=== PATIENT | female | born 1965 | race Caucasian/White ===

== ENCOUNTER 2024-08-04 16:46 | Outpatient (OUT) | payer OTHER, SELFPAY ==
--- NOTE | 2024-08-04 17:01 | US_ITS ---
[address] [address] Patient Name: LAINA WALDEN MRN: [id number] date: 1965 Sex: F Assigned Patient Location: US Current Patient Location: Accession/Order Number: [id number] Exam Date: 08/04/2024 17:07 Report Date: 08/05/2024 07:36 At the request of: DIMA MUIR Procedure: US carotid duplex BI EXAMINATION: US carotid duplex BI HISTORY: VISION CHANGES H53.9 COMPARISON: No relevant comparison available. TECHNIQUE: Duplex Doppler ultrasound analysis of carotid and vertebral arteries. . Bilateral carotid arterial duplex examination was performed using B-mode, color flow and spectral analysis. Carotid stenosis is reported according to validated velocity parameters, similar to NASCET criteria. FINDINGS: RIGHT CAROTID ARTERY Subclavian: 110.82 cm/s / 0 cm/s CCA: Prox: 84 cm/s / 20 cm/s Mid: 97.84 cm/s / 26.66 cm/s Distal: 96.54 cm/s / 24.07 cm/s BULB: 81.01 cm/s / 24.07 cm/s ICA: Prox: 96.74 cm/s / 14.37 cm/s Mid: 83.60 cm/s / 34.42 cm/s Distal: 77.13 cm/s / 27.95 cm/s ECA: 110.78 cm/s / 17.60 cm/s VERTEBRAL: 69.75 cm/s / 21.87 cm/s ICA/CCA ratio: 1.0 LEFT CAROTID ARTERY Subclavian: 198 cm/s / 0 cm/s CCA: Prox: 93.05 cm/s / 20.58 cm/s Mid: 93.05 cm/s / 27.05 cm/s Distal: 93.05 cm/s / 29.64 cm/s BULB: 80.11 cm/s / 23.16 cm/s ICA: Prox: 70.85 cm/s / 28.92 cm/s Mid: 66.53 cm/s / 23.54 cm/s Distal: 79.43 cm/s / 36.44 cm/s ECA: 70.98 cm/s / 10.60 cm/s VERTEBRAL: 40.90 cm/s / 12.02 cm/s ICA/CCA ratio: 0.9 US/US carotid duplex BI IMPRESSION: 1. 0-49% flow stenosis within the right left carotid arteries. 2. No significant atherosclerotic disease or vessel narrowing. Spectral Doppler US Thresholds Stenosis (%) PSV (cm/sec) VICA/VCCA 0-49 <150 <2.5 50-69 150-225 2.5-4.0 >70 >225 >4.0 Electronically authenticated by: JAMIE SAVAGE Date: 08/05/2024 07:36
== END 2024-08-04 16:47 | disposition home or self-care (01) ==
LOC: US 16:49
PROVIDERS: PCP Family Medicine; Visit Provider Family Medicine
DX: H53.9 Unspecified visual disturbance (principal); G45.3 Amaurosis fugax
CPT/HCPCS: 93880

== ENCOUNTER 2024-08-23 15:01 | Outpatient (OUT) | payer OTHER, SELFPAY ==
--- NOTE | 2024-08-23 15:05 | CT_ITS ---
The [address] [address] Patient Name: LAINA WALDEN MRN: [id number] date: 1965 Sex: F Assigned Patient Location: CT Current Patient Location: Accession/Order Number: [id number] Exam Date: 08/23/2024 15:06 Report Date: 08/24/2024 05:34 At the request of: DIMA MUIR Procedure: CT head/brain wo con EXAMINATION: CT head/brain wo con HISTORY: Visual Changes, Amaurosis Fugax COMPARISON: No relevant comparison available. TECHNIQUE: Axial CT images were obtained without IV contrast. Dose reduction techniques were achieved by using automated exposure control and/or adjustment of mA and/or kV according to patient size and/or use of iterative reconstruction technique. FINDINGS: BRAIN: No edema, hemorrhage, mass, acute infarction, or inappropriate atrophy. CSF SPACES: No hydrocephalus, subarachnoid hemorrhage, or mass. Appropriate for age. SKULL: No fracture, mass, or other significant visible lesion. SINUSES: No significant mucosal thickening or fluid on the limited views. ORBITS: No appreciable abnormality on the limited views. OTHER: Negative CT/CT head/brain wo con IMPRESSION: 1. No abnormal or suspicious findings to account for patient's symptoms. Consider MRI for further evaluation. Electronically authenticated by: JAMIE SAVAGE Date: 08/24/2024 05:34
--- OUTSIDE RECORDS SUMMARY | 2024-08-23 15:19 | XMS_ITS | CCD ---
Author Organization [facility] Inform ion Partnership [facility] Care Team Providers Care Craft Worker Name Role Phone DR RICHARD MUIR Attending Unavailable WOOD, DR CH Consulting Unavailable WOOD, DR CH Primary Care Unavailable WOOD, DR CH Admitting Unavailable RICHARD MUIR Primary Care Physician MD Richard Muir Primary Care Provider [phone] DO Kayley Garnett Attending Provider [phone] MD Richard Muir Primary Care Provider [phone] DO Kayley Garnett Attending Provider [phone] Richard Muir Primary Care Unavailable Kayley Garnett Attending Unavailable Kayley Garnett Admitting Unavailable Rihcard Muir MD Primary Care Provider Richard Muir MD Unavailable KAYLEY GARNETT Attending Unavailable RICHARD MUIR Attending Unavailable Medications Current Medications Medication Drug Class(es) Dates Sig (Normalized) Sig (Original) acetaminophen 325 mg / HYDROcodone bitartrate 5 mg oral tablet (2 sources) Opioid Agonist Start: 08-25-2019 take 1 tablet by mouth every six hours Hydrocodone-Aceta minophen Active 1 TAB PO Q6H 20 5 August 25, 2019 ascorbic acid 1000 mg oral tablet (8 sources) Vitamin C Start: 08-25-2019 take 1 tablet by mouth once daily Ascorbic Acid (Vitamin C) (Vitamin C) 1,000 mg Tablet Active 1000 MG PO Daily August 25, 2019 1:00am Start: 02-18-2018 take 100 mg by mouth once daily Vitamin C 100 mg, Oral, Daily, Refills(s) 0, Prophylaxis Start Date: 02/18/18 Status: Ordered Bioflavonoid Pro ducts (Vitamin C) chewable tablet 1 (one) time each day at the same time Active ascorbic acid 226 mg / cuprous oxide 0.8 mg / dl-alpha tocopheryl acetate 200 unt / lutein 5 mg / zinc oxide 34.8 mg oral capsule (2 sources) Vitamin C Start: 08-25-2019 take 0.8 mg by mouth once daily Vit J-J-Zxlbqx-Zinc-Lutein (Preservision Lutein) 226 mg-200 unit -5 mg-0.8 mg Capsule Active 226 MG PO Daily August 25, 2019 1:00am B Complex Vitamins (vitamin B complex) tablet (3 sources) B Complex Vitami ns (vitamin B complex) tablet Orally Active Biotin (8 sources) Start: 08-25-2019 take 300 ug by mouth once daily Biotin Active 300 MCG PO Daily August 25, 2019 1:00am Start: 08-25-2019 take 300 ug by mouth once vinita y Biotin Active 300 MCG PO Daily August 25, 2019 1:00am Start: 02-18-2018 biotin 1,000 m icrogram, Oral, Daily, Refills(s) 0, Prophylaxis Start Date: 02/18/18 Status: Ordered Calcium (3 sources) Phosphate Binder, Calcium Start: 02-18-2018 take 1 tablet by mouth once daily Calcium 600+D 1 tab, Oral, Daily, Refill(s) 0, Prophylaxis Start Date: 02/18/18 Status: Ordered calcium carbonate 1250 mg oral tablet (2 sources) Start: 08-25-2019 take 1 tablet by mouth once daily Calcium Carbonate (Calcium 500) 500 mg calcium (1,250 mg) Tablet Active 500 MG PO Daily August 25, 2019 1:00am Calcium Citrate-Vitamin D 1000-0.01 MG/30ML liquid (3 sources) Calcium Citrate-Vitamin D 1000-0.01 MG/30ML liquid Take by mouth Active cholecalciferol 0.025 mg oral capsule (5 sources) Vitamin D Start: 08-25-2019 take 1 capsule by mouth once daily Cholecalciferol (Vitamin D3) (Vitamin D3) 1,000 unit Capsule Active 1000 MG PO Daily August 25, 2019 1:00am cholecalciferol 50 MCG (2000 UT) tablet 1 (one) time each day at the same time Active chromium picolinate 0.2 mg oral tablet (5 sources) Start: 08-25-2019 take 200 mg by mouth once daily Chromium Picolinate Active 200 MG PO Daily August 25, 2019 1:00am Start: 02-18-2018 chromium picol inate 200 microgram, Oral, Daily, Refills(s) 0, Prophylaxis Start Date: 02/18/18 Status: Ordered chromium, chelated 0.2 mg oral tablet (2 sources) chromium picolin ate 200 mcg tablet tablet Active Co Q-10 (3 sources) Start: 018 take 150 mg by mouth once daily Co Q-10 150 mg, Oral, Daily, Refills(s) 0, Prophylaxis Start Date: 02/18/18 Status: Ordered estradiol 0.5 mg oral tablet (8 sources) Estrogen Start: estradiol (Estrace) 0.5 MG tablet Indications: Postmenopausal atrophic vaginitis TAKE 1 TABLET DAILY 90 tablet 3 11/08/2023 Active Fish Oils (3 sources) Start: take 500 mg by mouth once daily Fish Oil 500 mg, Oral, Daily, Refill(s) 0, Prophylaxis Start Date: 02/18/18 Status: Ordered hydrocortisone 0.025 mg/mg topical ointment (3 sources) Corticosteroid Start: hydrocortisone 2.5 % ointment if needed 11/11/2023 Active ivermectin 10 mg/ml topical cream (3 sources) Antiparasitic, Pediculicide Start: Soolantra 1 % cream 11/11/2023 Active Magnesium (2 sources) Start: magnesium 200 MG tablet 04/04/2024 Active [place]well 5-Lph-Jtw-Fish Oil (Fish Oil) 1,000 mg (120 mg-180 mg) Capsule (2 sources) Start: 019 take 1 capsule by mouth twice daily [place]well 3-Hld-Kjx-Fish Oil (Fish Oil) 1,000 mg (120 mg-180 mg) Capsule Active 1000 MG PO Twice daily August 25, 2019 1:00am polyethylene glycol 3350 with electrolytes Oral Pwdr for Pao 4000 mL (NuLytely) (2 sources) Start: 022 take 1 dose by mouth once polyethylene glycol 3350 with electrolytes Oral Pwdr for Pao 4000 mL (NuLytely) See Instructions, 1 EA, Refill(s) 0, PER PHYSICIAN INSTRUCTIONS. PRIOR TO COLONOSCOPY., [facility]/pharmacy #[id number], 157.5, cm, 12/22/21 8:44:00 EDT, Height/Length Dosing, 67.5, kg, 12/22/21 8:44:00 EDT, Weight Dosing Start Date: 12/22/21 Status: Ordered pyridoxine (3 sources) Start: take 250 mg by mouth once daily pyridoxine 250 mg, Oral, Daily, b-6, Refills(s) 0, Prophylaxis Start Date: 02/18/18 Status: Ordered selenium (3 sources) Start: take 50 ug by mouth once daily selenium 50 mcg, Oral, Daily, Refills(s) 0, Prophylaxis Start Date: 02/18/18 Status: Ordered Selenium (2 sources) Start: take 50 ug by mouth once daily Selenium Active 50 MCG PO Daily August 25, 2019 1:00am selenium 100 MCG tablet (2 sources) selenium 100 MCG tablet Active spironolactone 100 mg oral tablet (3 sources) Aldosterone Antagonist Start: take 100 mg by mouth once daily spironolactone 100 mg, Oral, Daily, Refills(s) 0, diuretic/water pill Start Date: 02/18/18 Status: Ordered tretinoin 0.25 mg/ml topical cream (3 sources) Retinoid Start: tretinoin (Retin-A) 0.025 % cream 11/11/2023 Active ubidecarenone 30 mg oral capsule (5 sources) Start: End: Coenzyme Q10 (Coq-10) 30 mg Capsule Active 30 MG PO Daily August 25, 2019 1:00am Vitamin B Complex (2 sources) Start: take 50 mg by mouth once daily Vitamin B Complex Active 50 MG PO Daily August 25, 2019 1:00am Vitamin B Complex oral capsule (3 sources) Start: take 1 capsule by mouth once daily Vitamin B Complex oral capsule 1 cap(s), Oral, Daily, Refill(s) 0, Prophylaxis Start Date: 02/18/18 Status: Ordered Vitamin D3 (3 sources) Start: 05-18-2 018 Vitamin D3 400 International_Unit, Oral, Daily, Refills(s) 0, Prophylaxis Start Date: 02/18/18 Status: Ordered Zinc (5 sources) Start: 019 take 50 mg by mouth once daily Zinc Active 50 MG PO Daily August 25, 2019 1:00am Start: 02-21-2018 take 140 mg by mouth once vinita y Zinc 140 mg, Oral, Daily, Refills(s) 0, Prophylaxis Start Date: 02/21/18 Status: Ordered zinc gluconate 50 mg oral ta blet (3 sources) zinc gluconate 5 0 MG tablet 1 (one) time each day at the same time. Active Completed/Discontinued Medications Medication Drug Class(es) Dates Sig (Normalized) Sig (Original) aspirin 81 mg delayed release oral tablet (2 sources) Platelet Aggregation Inhibitor, Nonsteroidal Anti-inflammatory Drug Start: 08-25-2019 End: 08-25-2019 Aspirin (Aspirin Low Dose) 81 mg Tablet,Delayed Release (Dr/Ec) Discontinued August 25, 2019 1:00am August 25, 2019 9:03am Problems Active Problems Problem Classification Problem Date Documented Da te Episodic/Chronic Asthma (3 sources) Asthma; Translations: [Unspecified asthma, uncomplicated] Onset: 06-21-2008 04-27-2023 Chronic Blindness and vision defects (7 sources) Eye / vision finding; Translations: [Unspecified visual disturbance] Onset: 05-03-2023 05-03-2023 Episodic Diverticulosis and diverticulitis (5 sources) Diverticula of intestine; Translations: [Diverticulosis of intestine, part unspecified, without perforation or abscess without bleeding] Onset: 02-12-2022 Chronic Headache; including migraine (1 source) Headache; including migraine; Translations: [HEADACHE UNSPECIFIED] Onset: 09-30-2021 Menopausal disorders (3 sources) Atrophic vaginitis; Translations: [Postmenopausal atrophic vaginitis] Onset: 04-27-2023 04-27-2023 Chronic Other nutritional; endocrine; and metabolic disorders (1 source) Overweight in adulthood with body mass index of 25 or more but less than 30; Translations: [Body mass index (BMI) 27.0-27.9, adult] Onset: 12-22-2021 Episodic Other screening for suspected conditions (not mental disorders or infectious disease) (1 source) Encounter for screening mammogram for malignant neoplasm of breast; Translations: [Encounter for screening mammogram for malignant neoplasm of breast] Onset: 03-27-2024 Episodic Other upper respiratory infections (4 sources) Acute pharyngitis, unspecified; Translations: [ACUTE PHARYNGITIS UNSPECIFIED] Onset: 09-23-2021 Episodic Residual codes; unclassified (2 sources) Family history of malignant neoplasm of digestive organ; Translations: [Family history of malignant neoplasm of digestive organs] Onset: 12-22-2021 Episodic Transient cerebral ischemia (6 sources) Amaurosis fugax; Translations: [Amaurosis fugax] Onset: 07-31-2024 07-31-2024 Chronic Past or Other Problems Problem Classification Problem Date Documented Da te Episodic/Chronic Hemorrhoids (5 sources) Hemorrhoids; Translations: [Unspecified hemorrhoids] Onset: 02-12-2022 Episodic Other and unspecified benign neoplasm (7 sources) History of polyp of colon; Translations: [Personal history of colonic polyps] Onset: 12-22-2021 Resolved: 11-29-2023 Episodic Other and unspecified benign neoplasm (5 sources) Polyp of colon; Translations: [Polyp of colon] Onset: 02-12-2022 Episodic Other and unspecified benign neoplasm (3 sources) Benign adenomatous neoplasm; Translations: [Benign neoplasm, unspecified site] Onset: 04-27-2023 Resolved: 11-29-2023 11-29-2023 Episodic Other nervous system disorders (3 sources) Plantar nerve lesion; 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, unspecified lower limb] Onset: 04-27-2023 Resolved: 11-29-2023 11-29-2023 Chronic Residual codes; unclassified (8 sources) Family history of polyp of colon; Translations: [Family history of colonic polyps] Onset: 12-22-2021 Resolved: 11-29-2023 Episodic Residual codes; unclassified (6 sources) Family history of cancer of colon; Translations: [Family history of malignant neoplasm of digestive organs] Onset: 11-29-2023 Resolved: 11-29-2023 12-22-2021 Episodic Results Test Name Value Interpretation Reference Range Facility MM screening mammo BI w/CADo n 03-27-2024 MM screening mammo BI w/CAD [address] [address] Mammography Report Signed Patient: Delores Walden MR#: [id number] : 1965 Acct:[id number] Age/Sex: 58 / F ADM Date: 03/27/24 Loc: [place] Room: Type: [facility] Attending Dr: Kayley Garnett DO Copies to: MD Kayley Stover DO Ordering Provider: Kayley Garnett DO Date of Service: 03/27/24 MM/MM screening mammo BI w/CAD: SCREENING CLINICAL DATA: Screening for malignancy. SCREENING MAMMOGRAM - FULL FIELD DIGITAL WITH TOMOSYNTHESIS AND CAD COMPARISON:Mammogram s dating back to 2020 Tomosynthesis craniocaudal and mediolateral oblique views of both breasts were obtained using low- dose digital technique. This examination was reviewed with the aid of CAD. FINDINGS: The breast parenchyma is heterogeneously dense. There are no dominant masses, typically malignant calcifications or architectural distortion. There has been no significant interval change. MM/MM screening mammo BI w/CAD IMPRESSION: NO MAMMOGRAPHIC EVIDENCE OF MALIGNANCY. ROUTINE FOLLOW-UP IS RECOMMENDED IN ONE YEAR. RESULT CODE: 1 Negative DENSITY CODE: 3 (approximately 51-75% glandular) FOLLOW UP: 1YR The false-negative rate of mammography is approximately 10-percent. Management of a palpable abnormality must be based on clinical grounds. Patient was entered into a reminder system with a target due date for the next mammogram. Impression dictated by: Pranay Singh Jr., D.OДмитрий03/27/2024 10:01 AM Dictation Location: [facility] Transcribed By: [facility] 03/27/24 1001 Dictated By: Pranay Singh Jr, DO 03/27/24 1000 Signed By: 03/27/24 1001 Normal [facility] Ambulatory Visit Summaryon 0 02-12-2022 Ambulatory Visit Summary DELORES WALDEN :1965 Visit Date:02/12/2022 Ambulatory Visit Instructions Your Diagnosis Colon polyps Diverticulosis Hemorrhoids Family history of colon cancer Family history of colonic polyps Your Care Team Attending Physician - Wisam JAMES, Elizabeth A Primary Care Physician - RICHARD MUIR MD This Is Your Medications List Contact prescribing physician if questions or concerns ascorbic acid (Vitamin C) biotin calcium-vitamin D (Calcium 600+D) cholecalciferol (Vitamin D3) chromium picolinate estradiol (Estrace 0.5 mg Tab) multivitamin (Vitamin B Complex oral capsule) omega-3 polyunsaturated fatty acids (Fish Oil) pyridoxine selenium spironolactone ubiquinone (Co Q-10) zinc sulfate (Zinc) Procedures Performed Colonoscopy, Fissurectomy with sphincterotomy, Hysterectomy. Discharge Vitals Temperature (Temporal Artery) 36.2 ?C Heart Rate (Peripheral) 56 Blood Pressure 125/79 Height 157.5 cm Height 157.5 cm Weight 67.1 kg Weight 67.1 kg BMI 27.05 What to do next You Need to Schedule the Following Appointments Follow Up with Elizabeth Joel CNP When: Within 1 year, only if needed Where: Medications What How Much When Instructions Unchanged ascorbic acid (Vitamin C) 100 Milligram By Mouth Every day Contact prescribing physician if questions or concerns Unchanged biotin 1,000 Microgram By Mouth Every day Contact prescribing physician if questions or concerns Unchanged calcium-vitamin D (Calcium 600+D) 1 tab By Mouth Every day Contact prescribing physician if questions or concerns Unchanged cholecalciferol (Vitamin D3) 400 International unit By Mouth Every day Contact prescribing physician if questions or concerns Unchanged chromium picolinate 200 Microgram By Mouth Every day Contact prescribing physician if questions or concerns Unchanged estradiol (Estrace 0.5 mg Tab) 1 Tablets By Mouth Every day Contact prescribing physician if questions or concerns Unchanged multivitamin (Vitamin B Complex oral capsule) 1 Capsules By Mouth Every day Contact prescribing physician if questions or concerns Unchanged omega-3 polyunsaturated fatty acids (Fish Oil) 500 Milligram By Mouth Every day Contact prescribing physician if questions or concerns Unchanged pyridoxine 250 Milligram By Mouth Every day b-6 Contact prescribing physician if questions or concerns Unchanged selenium 50 mcg By Mouth Every day Contact prescribing physician if questions or concerns Unchanged spironolactone 100 Milligram By Mouth Every day Contact prescribing physician if questions or concerns Unchanged ubiquinone (Co Q-10) 150 Milligram By Mouth Every day Contact prescribing physician if questions or concerns Unchanged zinc sulfate (Zinc) 140 Milligram By Mouth Every day Contact prescribing physician if questions or concerns Allergies No Known Medication Allergies Problems Ongoing - Any problem that you are currently receiving treatment for. Colon polyps Diverticulosis Family history of colon cancer Family history of colonic polyps Hemorrhoids History of colon polyps Education Materials Colon Polyps Polyps are tissue growths inside the body. Polyps can grow in many places, including the large intestine (colon). A polyp may be a round bump or a mushroom-shaped growth. You could have one polyp or several. Most colon polyps are noncancerous (benign). However, some colon polyps can become cancerous over time. Finding and removing the polyps early can help prevent this. What are the causes? The exact cause of colon polyps is not known. What increases the risk? You are more likely to develop this condition if you: ? Have a family history of colon cancer or colon polyps. ? Are older than 50 or older than 45 if you are . ? Have inflammatory bowel disease, such as ulcerative colitis or Crohn's disease. ? Have certain hereditary conditions, such as: ? Familial adenomatous polyposis. ? Neff syndrome. ? Turcot syndrome. ? Peutz?Jeghers syndrome. ? Are overweight. ? Smoke cigarettes. ? Do not get enough exercise. ? Drink too much alcohol. ? Eat a diet that is high in fat and red meat and low in fiber. ? Had childhood cancer that was treated with abdominal radiation. What are the signs or symptoms? Most polyps do not cause symptoms. If you have symptoms, they may include: ? Blood coming from your rectum when having a bowel movement. ? Blood in your stool. The stool may look dark red or black. ? Abdominal pain. ? A change in bowel habits, such as constipation or diarrhea. How is this diagnosed? This condition is diagnosed with a colonoscopy. This is a procedure in which a lighted, flexible scope is inserted into the anus and then passed into the colon to examine the area. Polyps are sometimes found when a colonoscopy is done as part of routine cancer s (more content not included)... Normal [facility] Gastroenterology Office/Clin ic Noteon 02-12-2022 Gastroenterology Office/Clinic Note Chief Complaint Review results HPI Staff Patient is here today to review results. History of Present Illness Patient is a 56-year-old female who presents for follow-up from colonoscopy completed 01/27/[address] Domingo. Patient with history of colon polyps. Patient also with family history of colon cancer?patient's father. Patient with family history of colon polyps?patient's father and patient's brother. Colonoscopy 01/27/2022 revealed tubulovillous adenoma removed from cecum, diverticulosis, hemorrhoids - Dr. Domingo recommended for patient to have repeat colonoscopy in 3 years (2024). During today's visit, patient reports she is doing well. Denies having any GI complaints. Review of Systems ROS - Provider Constitutional: no fever, no chills. Skin: no Jaundice. ENMT: Denies dysphagia and heartburn. Respiratory: no shortness of breath. Cardiovascular: no chest pain. Gastrointestinal: no nausea, no vomiting, no diarrhea, no GI bleeding. Physical Exam Vitals & Measurements T: 36.2 ?C(Temporal Artery) HR: 56(Peripheral) BP: 125/79 SpO2: 100% HT: 157.5 cm HT: 157.5 cm WT: 67.1 kg WT: 67.1 kg BMI: 27.05 General: Well developed, well nourished, in no acute distress Head: Normocephalic/atraum atic Lungs: Normal respiratory effort and clear to auscultation Cardio: Regular rate and rhythm, normal S1 and S2, no murmur, no rub Abdomen: Soft, non-distended, non-tender. Normoactive bowel sounds present in all 4 abdominal quadrants, bilaterally. Mental Status: Alert and oriented x3. Normal mood and affect Assessment/Plan 1. Colon polyps (K63.5: Polyp of colon) Family history of colon cancer?patient's father. Patient with family history of colon polyps?patient's father and patient's brother. Colonoscopy 01/27/2022 revealed tubulovillous adenoma removed from cecum, diverticulosis, hemorrhoids- Dr. Domingo recommended for patient to have repeat colonoscopy in 3 years (2024). Educated regarding use of fiber daily for hemorrhoids, diverticulosis and to potentially assist in reducing risk of future colon polyps. 2. Diverticulosis (K57.90: Diverticulosis of intestine, part unspecified, without perforation or abscess without bleeding) Same as above plan of care. See #1. 3. Hemorrhoids (K64.9: Unspecified hemorrhoids) Same as above plan of care. See #1. 4. Family history of colon cancer (Z80.0: Family history of malignant neoplasm of digestive organs) Same as above plan of care. See #1. 5. Family history of colonic polyps (Z83.71: Family history of colonic polyps) Same as above plan of care. See #1. Follow-up With When Contact Information Elizabeth Joel CNP Within 1 year, only if needed Additional Instructions: Patient Education Colon Polyps Problem List/Past Medical History Ongoing Colon polyps Diverticulosis Family history of colon cancer Family history of colonic polyps Hemorrhoids History of colon polyps Historical No qualifying data Procedure/Surgical History Colonoscopy, Fissurectomy with sphincterotomy, Hysterectomy. Medications biotin, 1000 mcg, Oral, Daily Calcium 600+D, 1 tab, Oral, Daily chromium picolinate, 200 mcg, Oral, Daily Co Q-10, 150 mg, Oral, Daily Estrace 0.5 mg Tab, 0.5 mg= 1 tab(s), Oral, Daily Fish Oil, 500 mg, Oral, Daily pyridoxine, 250 mg, Oral, Daily selenium, 50 mcg, Oral, Daily spironolactone, 100 mg, Oral, Daily, Not taking Vitamin B Complex oral capsule, 1 cap(s), Oral, Daily Vitamin C, 100 mg, Oral, Daily Vitamin D3, 400 International_Unit, Oral, Daily Zinc, 140 mg, Oral, Daily Allergies No Known Medication Allergies Social History Alcohol Current, Wine, 1-2 times per year, 12/22/2021 Substance Abuse - Denies Substance Abuse, 12/22/2021 Tobacco Never (less than 100 in lifetime) Tobacco Use:. Never Smokeless Tobacco Use:., 02/12/2022 Family History Primary malignant neoplasm of colon: Father. Primary malignant neoplasm of female breast: Sister. Normal [facility] Comment on above: Result Comment: Elec tronically Signed By: Elizabeth Joel CNP\.br\Date and Time Signed: 02/12/22 15:19 EDT Patient Educationon 02-13-20 Patient Education Oncology Colon Polyps Polyps are tissue growths inside the body. Polyps can grow in many places, including the large intestine (colon). A polyp may be a round bump or a mushroom-shaped growth. You could have one polyp or several. Most colon polyps are noncancerous (benign). However, some colon polyps can become cancerous over time. Finding and removing the polyps early can help prevent this. What are the causes? The exact cause of colon polyps is not known. What increases the risk? You are more likely to develop this condition if you: ? Have a family history of colon cancer or colon polyps. ? Are older than 50 or older than 45 if you are . ? Have inflammatory bowel disease, such as ulcerative colitis or Crohn's disease. ? Have certain hereditary conditions, such as: ? Familial adenomatous polyposis. ? Neff syndrome. ? Turcot syndrome. ? Peutz?Jeghers syndrome. ? Are overweight. ? Smoke cigarettes. ? Do not get enough exercise. ? Drink too much alcohol. ? Eat a diet that is high in fat and red meat and low in fiber. ? Had childhood cancer that was treated with abdominal radiation. What are the signs or symptoms? Most polyps do not cause symptoms. If you have symptoms, they may include: ? Blood coming from your rectum when having a bowel movement. ? Blood in your stool. The stool may look dark red or black. ? Abdominal pain. ? A change in bowel habits, such as constipation or diarrhea. How is this diagnosed? This condition is diagnosed with a colonoscopy. This is a procedure in which a lighted, flexible scope is inserted into the anus and then passed into the colon to examine the area. Polyps are sometimes found when a colonoscopy is done as part of routine cancer screening tests. How is this treated? Treatment for this condition involves removing any polyps that are found. Most polyps can be removed during a colonoscopy. Those polyps will then be tested for cancer. Additional treatment may be needed depending on the results of testing. Follow these instructions at home: Lifestyle ? Maintain a healthy weight, or lose weight if recommended by your health care provider. ? Exercise every day or as told by your health care provider. ? Do not use any products that contain nicotine or tobacco, such as cigarettes and e-cigarettes. If you need help quitting, ask your health care provider. ? If you drink alcohol, limit how much you have: ? 0?1 drink a day for women. ? 0?2 drinks a day for men. ? Be aware of how much alcohol is in your drink. In the [place] one drink equals one 12 oz bottle of beer (355 mL), one 5 oz glass of wine (148 mL), or one 1? oz shot of hard liquor (44 mL). Eating and drinking ? Eat foods that are high in fiber, such as fruits, vegetables, and whole grains. ? Eat foods that are high in calcium and vitamin D, such as milk, cheese, yogurt, eggs, liver, fish, and broccoli. ? Limit foods that are high in fat, such as fried foods and desserts. ? Limit the amount of red meat and processed meat you eat, such as hot dogs, sausage, lui, and lunch meats. General instructions ? Keep all follow-up visits as told by your health care provider. This is important. ? This includes having regularly scheduled colonoscopies. ? Talk to your health care provider about when you need a colonoscopy. Contact a health care provider if: ? You have new or worsening bleeding during a bowel movement. ? You have new or increased blood in your stool. ? You have a change in bowel habits. ? You lose weight for no known reason. Summary ? Polyps are tissue growths inside the body. Polyps can grow in many places, including the colon. ? Most colon polyps are noncancerous (benign), but some can become cancerous over time. ? This condition is diagnosed with a colonoscopy. ? Treatment for this condition involves removing any polyps that are found. Most polyps can be removed during a colonoscopy. This information is not intended to replace advice given to you by your health care provider. Make sure you discuss any questions you have with your health care provider. Document Released: 06/16/2005 Document Revised: 01/05/2019 Document Reviewed: 01/05/2019 [employer] Patient Education ? 2019 [employer]. [facility] Reminderson 02-12-2022 Reminders - From: Elizabeth Joel CNP To: Lelia Lynch; Sent: 02/12/2022 15:17:38 EDT Show up: 02/12/2022 15:18:00 EDT Subject: Ambulatory Reminder Reminder/Recall Colonoscopy in 3 years (2024). Normal [facility] Coding Summary.on 02-06-2022 Coding Summary. CD:[id number] Gh0bWw+PGhlYWQ+PE1FV DBrJ48wyUQkpF5HD8iCI T0JTIXGFTDLLP6EAQ7tb YW2BRnnD5PkznFo CdpocILgML61XRn1VXG3 jCdmHUilyR5bvBQeK4r2 GwFlFL67cS86JFjwNCLb CpH5MkKjuzfbdJXv P9xwRkRogLMrRhp+PHRh YmxlIHdpZHRoPScxMDAl XsOnfMbwDG4wKt3zFAKb LWNvbGxhcHNlOiBj z2iqPASzSTutCA3sbTxc A2IgsHR8FDLib1e7Rl79 dHI+VJNyCRP0jGdmJJiy b019XvYds1gpFCX4 aNVpUCllMVW7B50ie6C8 JBVyNNNmJDD9rFI6cA7l iMpdaqtaH5FmtSPpWjF9 TUE6vXAngW1cxVep vrmixA5vZns+S71NKQ7N LFNGIZ1SNqf2W7AdTxxf dHI+OM60BWPjAT62kQSf mJSuz4sbpHk7EkGw SHKmTGA9yMakZKpuf2Cd HSEqK47zuPJnf6M0RHRl hXvddZBkDuYyiMB6sH1o LBxjtzyru7yejoev Rdrws6vjkm12wI41X79g BMatSKKqBYP8RNHjXLYr qPefyw6qbP2qOo4+IDxj o5xxb8foqNe0IzFo UHXougFgaNzdXJZ3j5Ju Lc21U8LlsIlay9CqNin8 di02yMZjy7Y3aKA4MYag FOXcnK2qVUqfJfZ8 KVLrBvAajE85tNEyHQld Aw6jpTxgmLmkZO6hJSEc uotoNAFizH0eFEYjiGOp yUgyFU2tPDVycihb i280TkVsNNV4GCExfVZm A1JbbQ0gGrPpOYPtBWDv C0FprUHrHHxtN102UUxe WcM3PBXklbVvL9Jg MDFqcSzcViT3p7A4Ud1J h6SvpjozDKY0KPnoJLE4 DmO8SiFpCcZ1Q9NpGvl0 QLGtxCojDU7oG4Zg NQBskmzcxitmgDZ4NGQq PBPivO99qUVpBExoAz4x a6E2f673KRWhXQAprP98 Ob6keMftPBRruZRS aD4nlayrg7utibcdVwWj DZOsLBy9NKy6OMQlvAzq LrJvTHI1LrV7MOI6pJZf hX5gjSgtsbbqbG5l Oyc+S61ycE8eQPV4MVL3 gugyHSNbiyZaSW55ZY53 U4TxZzoaiOYuvCB+PGRp oaTqfUlmLI4oYfDt x0cff8VzSRsaP6YnWRUz OOqtIew1TAVdHNW3uHZ1 xK5sTOBgRRbtu8C9aHJ1 G8LevxHuem6fa3nj YFGvUEotR75uwFKyw9J2 GMNirCB6FYOzqLjkQtPw xO80Zvx+PYCbcWmxv2Bn Jqshg9oxx4pzhLy6 IjMwJSIgdmFsaWduPSJ0 o4UbMv73S44kNQljHIAg PHCrETQvZKOkuWsssb3w wW8vBa3+PGNvbCB3 oXC3cW5hLSNyPfL6BMdu H289GiGrjDNtPfzjv1io r8sjlDj7KvNrYMYylaEi cIlmWCG3p0ApDj66 V56sAYvfLGOiNJLgYUPg EJMcqNfcbh3feD0bTv9+ CT1hn9uipo20xD52nWR+ RLWhYVK1oMkmALiw WXBroW0pGNlcWlB8ULYy VoEncP50mOTnYWwtXb2x oVjtoAedIZ8qLOIowzgx x241JxVel0aeOSBx rFTcQEjnBGV7W36hb8N8 MGWtMGGePPQ7dKC0uA8a bGlnbjogbGVmdDsgdmVy uOzxOPslSTioN847 IHRvcDsnPlBhdGllbnQg YzUqRQp8F4DuKkm9ALVu jAggPO6lmEVoRGkiUt8u fFqzoXssDO7zQBFl vekla825XzMrh7rtDLNa aTDcXVkwAMR7J88tk7G3 UZJmIAAoZXS6aVB2lG4q bGlnbjogbGVmdDsg iaScrCgdWNggYQusA308 IHRvcDsnPkJpcnRoIERh qKT8LR17EE60tOVse6R1 bZG8F1RoDNWchjsx mqpoqPG4OTHvZBLegQ43 Np7axUdoUv0vKZTrYGO0 YQKheDWeF4GhwT0xCaJy RZXvCKUaX2KziEIk BLnlH631IUeuXeR5CRFf veJaK7SeGYUegSdgCeO8 b1U4Nz2RM5L5XX06JD79 yEPgf3V5bRK3B7Wf EHTwnpldgohwvCT2UJMd LUUitS38Ws9noLfuZw1i WRVnFMT6YKZgkCTsA7Kk bZ0bNdIqQLGiFGFg N4KsxXQgLIbzS129PWdk XdL5IIGcvoWvL3IfLJPf yZaePeH5x7F3Nu8VTLg2 RV50VU93iSRmi8X7 qIL3V5KrXSQiynsbwjyg qOM4QPBmLKHlgC40Rm6g hBqtZr6xBGHvNUL0XHLl nBOqU4SpgV9aWuEy HHBsVKLkZ9VmuNLoPDvq Q868BSmtJpQ1BSGcchLz H9PuMTEsrOehBvP8s1U9 Kz0DMCUfOV60MVE3 gKJ2HC81RQ00K0TaFqfp dGFibGU+PHRhYmxlIHdp ZHRoPScxMDAlJyBzdHls QM1vXx0yJGOdYMIy tZikxIZbQsQqo3rgYDZe JIubDH7faDqfM2KydVE2 GZRmu0o0Ma51X75mR8Ud dXA+WOMxjCC8mQG9 wW3yHoUgFqI7ZAaxS910 DdKeyKXnHmciq1bof6bs iDa0PyD4EVXpikNifAfv TDT8u1BaGd47T62p IHdpZHRoPSIxNSUiIHZh wMfaqq5wsL8uLc4+PGNv dDO5zUJ0nS2bQqCaYuC4 FYttI972DjHueRGf Fuvpv4kkk9kbwAz4EbGf VYUezzBfaUsdYAN5p2No Ie18Q4AiaLgku7QeOac7 gk61nISvj0E5yAF5 Z4RaPSBxxxpjiEXueAda UL1vPJKesutmZBOqmA5h EKCdR4r5JlMkKuD9ZIxv M7WpeiN5GIOtqFJm PWxnNUH3K83al8A2TCWn SMCpPYB6sQB3eE4htYbs bjogbGVmdDsgdmVydGlj HHalWBfjL181NQJa zWvrEBFeeQ7rBAJtsKJk uHmoYG2zQHZtfczpYrGN GHHSJOZVGP7NBHplvEB+ XLNaHYG8fXbxCRhh XRSojH3pHQTiC7c4BfCh MbW9WKzlR6CtYRYhwnee Oi15pB6qXdAtWfF5EQpm Q9ZjvlI8UMHyyYBq GPocZAX5U35xp3U0OADp FRLiBOV9pIT9qL8xcIxx bjogbGVmdDsgdmVydGlj GKveMUiyV829BHHn aTinCyQ5SxF3BeL6CgW0 V6PvKjf8VTYlmAsgOZ9g zQAbZNbuOu9urLmycUbj BS4eNCLxtemiOCHl tO8vVTIugEEcqSwkIK5a CNEvvhrew597VxAiOGM6 BNTotXOfW3ZscY0hIyKd DJObZFDqM7JryOOa GQoqA049YUzoFiC8NITl hlZxH9HwMPUtyHxnHdH9 e0H6Zj85JJKJKVBfhvgr dGQ+CKBoKIB1vEzi UUxcFPMzqG5uVGQdA6r0 ShRpTyC8HWlqY2WzZQMs trhpAw68qY0oWfJkYdV5 DByxG3XgqnZ9RGJh nQLwMKdgDNC8I88pl1V0 YDViUSUjJBH8mJK7oK1m bGlnbjogbGVmdDsgdmVy kDaeDBcgLJyvJ438 IHRvcDsnPkZlbWFsZTwv dGQ+EPHiFRH8gKlxCSaf KRBqzY0sSDVuD8n6BlGw AxD6NUtdW4OeMXAh nzvjRm86iN4bRvMoKbE6 WJbnH2HuupJ0KQOzeBUj SSlfVXW8R43xf9R0APZi KDKzMWW7kOM8mO6l bGlnbjogbGVmdDsgdmVy vTkhDVhxLOmzC733GXBz oZaeKrlpKwMUbg8dQL0z ZjwvdGQ+MW47td75 P6EeYxysZkm0VKHhYAU9 aHX9gG2iEVJqPAxiw4L3 rSE3C0NgwoFtcg0qx6jc GWZuHVgqK85niTSa k7N5ZYGvqPY6IZFuxFrh VnUiwW77Hbe+PGNvbGdy q5FlPmrvl1erh9vspAe7 IjMwJSIgdmFsaWdu MUF0i5TfBf47I95tDEcu ZHRoPSIzMCUiIHZhbGln tz1eiB2hGs1+PGNvbCB3 aHS8uR3kNyAoOwG9 ZWryQ620JhHmlONqZcdr a0dwo4nddAy2NqMsAFZo diUuaCatWIO9d9WoHv31 E1QaaHflh0ChFwt6 sl79tWCgl1H6vSJ7N2Fh CPCwfqnsqDIijSdeSV0m YELyxopcRWOarH3mWMYl I9u8OjXcYfI5ZUxj N1CxgkI5VETyfDKsAJVu oAFToP6cmvzuj9anilbh RiMeVJRrAXl9IQj7IOVa kFlgJvQiWUJ2TqX1 MKT8jPEfqD4orOdfdlpc jZ3iMrm+HHh7z5tevNZb ED7twKC3XU86UY70nZGu r5N4jWX1T4SaONFo idewvxxiiMQ7TOXnVTQt tV70Kb4ajPzmSb8bSVAz LHI4JFBleUJvG0HsjJ7f PyHjISOpQYKvD8Ib mMLwLNytP265IMzvTxT7 XHOwjyPbL7NvXLXosEou EbS5r5D0Kp5TJI57CC06 QM98uWNzf0O1zNM4 X8IoYMSmsgcrfwszfZE2 CYYxNTLeqD19Lv7uoGqo Li3fSJVlTNG3PXTkcGNy Z7OhzR4yJeDbVKUo MJPtW0ZhkFYhVGxuB937 KPlcQgC6LXWvosHwW8Jo XOWedAnlBvY1b2L7Jf9V Dr43MA08AI08zUYr u0U5rPK3F2YqHGZkhdbj ghndgXP8RHVeAOUzoS82 Xo8lyBsjVu0zJKUfNLY1 XJXljMEmJ5WraC4i EvUgQQYhWXPbB2YqmEAu XIjgO443CBzvGcV5ZZIo yyTiU8JmMTJwnIhfGmL1 i7S0Vx2XOGtocdw8 V3PyGcegiPV+KB44IBXe SZ85wTGluEUcq0acbUg7 KhKwFUJuUWF9dKxlBEjn x7VhRQZcG32aoGKc c2U6 (more content not included)... Normal [facility] Outside Colonoscopyon 2021 Outside Colonoscopy [id number]#[id number]:127 Normal [facility] Reminderson 02-01-2022 Reminders - From: Antoine Clark To: GRADY - Reminders/Recalls; Sent: 02/01/2022 11:53:40 EDT Show up: 01/02/2025 11:53:00 EDT Subject: 3 year colonoscopy reminder Due Date/Time: 01/27/2025 11:53:00 EDT Reminder/Recall Repeat colonoscopy in 3 years (2024) Normal [facility] Physician Orderon 01-27-2022 Physician Order [id number] #1.00CD:127 Normal [facility] Ambulatory Visit Summaryon 0 12-22-2021 Ambulatory Visit Summary DELORES WALDEN :1965 Visit Date:12/22/2021 Ambulatory Visit Instructions Your Diagnosis History of colon polyps Family history of colon cancer Family history of colonic polyps BMI 27.0-27.9,adult Your Care Team Attending Physician - Elizabeth Joel CNP Primary Care Physician - RICHARD MUIR MD This Is Your Medications List polyethylene glycol 3350 with electrolytes (polyethylene glycol 3350 with electrolytes Oral Pwdr for Pao 4000 mL (NuLytely)) Contact prescribing physician if questions or concerns ascorbic acid (Vitamin C) biotin calcium-vitamin D (Calcium 600+D) cholecalciferol (Vitamin D3) chromium picolinate estradiol (Estrace 0.5 mg Tab) multivitamin (Vitamin B Complex oral capsule) omega-3 polyunsaturated fatty acids (Fish Oil) pyridoxine selenium spironolactone ubiquinone (Co Q-10) zinc sulfate (Zinc) Procedures Performed Colonoscopy, Fissurectomy with sphincterotomy, Hysterectomy. Discharge Vitals Temperature (Temporal Artery) 36.8 ?C Heart Rate (Peripheral) 68 Respiratory Rate 14 Blood Pressure 120/78 Height 157.5 cm Height 157.48 cm Weight 67.5 kg Weight 67.5 kg BMI 27.22 What to do next You Need to Schedule the Following Appointments Follow Up with Elizabeth Joel CNP When: Within 2 to 4 weeks Where: Medications What How Much When Instructions New polyethylene glycol 3350 with electrolytes (polyethylene glycol 3350 with electrolytes Oral Pwdr for Pao 4000 mL (NuLytely)) See instructions PER PHYSICIAN INSTRUCTIONS. PRIOR TO COLONOSCOPY. Pickup at [facility]/pharmacy #[id number] Unchanged ascorbic acid (Vitamin C) 100 Milligram By Mouth Every day Contact prescribing physician if questions or concerns Unchanged biotin 1,000 Microgram By Mouth Every day Contact prescribing physician if questions or concerns Unchanged calcium-vitamin D (Calcium 600+D) 1 tab By Mouth Every day Contact prescribing physician if questions or concerns Unchanged cholecalciferol (Vitamin D3) 400 International unit By Mouth Every day Contact prescribing physician if questions or concerns Unchanged chromium picolinate 200 Microgram By Mouth Every day Contact prescribing physician if questions or concerns Unchanged estradiol (Estrace 0.5 mg Tab) 1 Tablets By Mouth Every day Contact prescribing physician if questions or concerns Unchanged multivitamin (Vitamin B Complex oral capsule) 1 Capsules By Mouth Every day Contact prescribing physician if questions or concerns Unchanged omega-3 polyunsaturated fatty acids (Fish Oil) 500 Milligram By Mouth Every day Contact prescribing physician if questions or concerns Unchanged pyridoxine 250 Milligram By Mouth Every day b-6 Contact prescribing physician if questions or concerns Unchanged selenium 50 mcg By Mouth Every day Contact prescribing physician if questions or concerns Unchanged spironolactone 100 Milligram By Mouth Every day Contact prescribing physician if questions or concerns Unchanged ubiquinone (Co Q-10) 150 Milligram By Mouth Every day Contact prescribing physician if questions or concerns Unchanged zinc sulfate (Zinc) 140 Milligram By Mouth Every day Contact prescribing physician if questions or concerns Pharmacy Information [facility]/pharmacy #[id number]: [address], [place] [id number] [phone] Allergies No Known Medication Allergies Problems Ongoing - Any problem that you are currently receiving treatment for. Family history of colon cancer Family history of colonic polyps History of colon polyps Education Materials Colonoscopy, Adult A colonoscopy is an exam to look at the entire large intestine. During the exam, a lubricated, flexible tube that has a camera on the end of it is inserted into the anus and then passed into the rectum, colon, and other parts of the large intestine. You may have a colonoscopy as a part of normal colorectal screening or if you have certain symptoms, such as: ? Lack of red blood cells (anemia). ? Diarrhea that does not go away. ? Abdominal pain. ? Blood in your stool (feces). A colonoscopy can help screen for and diagnose medical problems, including: ? Tumors. ? Polyps. ? Inflammation. ? Areas of bleeding. Tell a health care provider about: ? Any allergies you have. ? All medicines you are taking, including vitamins, herbs, eye drops, creams, and qgin-wbb-wqkatgp medicines. ? Any problems you or family members have had with anesthetic medicines. ? Any blood disorders you have. ? Any surgeries you have had. ? Any medical conditions you have. ? Any problems you have had passing stool. What are the risks? Generally, this is a safe procedure. However, problems may occur, including: ? Bleeding. ? A tear in the intestine. ? A reaction to medicines given during the exam. ? Infection (rare). What happens before the procedure? Eating and drinking restrictions Follow (more content not included)... Normal [facility] Consent for Procedure/Surger yon 12-22-2021 Consent for Procedure/Surgery [id number] 9#[id number]:127 Normal [facility] Gastroenterology Office/Clin ic Noteon 12-22-2021 Gastroenterology Office/Clinic Note Chief Complaint Here for 3 year colonoscopy. HPI Staff Here for a colonoscopy. Patient's last colonoscopy with Dr. Domingo was 02/21/18. Patient was told to repeat in 3 years. Patient denies any colon symptoms or issues. History of Present Illness Patient is a 56-year-old female who presents for colonoscopy. Patient had previous colonoscopy 02/[address] Domingo that revealed tubular adenoma removed from cecum, hyperplastic polyp removed from cecum, hyperplastic polyp removed from ascending colon, and hemorrhoids. Family history of colon cancer: Patient's father. Family history of colon polyps: Patient's father, patient's brother. Personal history of colon cancer: Denies. Personal history of colon polyps: Yes, see above. Anticoagulation therapy: Denies. Antiplatelet therapy: Denies. During today's visit, patient reports she is doing well. Denies having any GI complaints. Review of Systems PHQ Score Initial Depression Screen Score: 0 ROS - Provider Constitutional: no fever, no chills. Skin: no Jaundice. ENMT: Denies dysphagia and heartburn. Respiratory: no shortness of breath. Cardiovascular: no chest pain. Gastrointestinal: no nausea, no vomiting, no diarrhea, no GI bleeding. Physical Exam Vitals & Measurements T: 36.8 ?C(Temporal Artery) HR: 68(Peripheral) RR: 14 BP: 120/78 HT: 157.5 cm HT: 157.48 cm WT: 67.5 kg WT: 67.5 kg BMI: 27.22 General: Well developed, well nourished, in no acute distress Head: Normocephalic/atraum atic Lungs: Normal respiratory effort and clear to auscultation Cardio: Regular rate and rhythm, normal S1 and S2, no murmur, no rub Abdomen: Soft, non-distended, non-tender. Normoactive bowel sounds present in all 4 abdominal quadrants, bilaterally. Mental Status: Alert and oriented x3. Normal mood and affect Assessment/Plan 1. History of colon polyps (Z86.010: Personal history of colonic polyps) FH colon cancer: Patient's father. FH colon polyps: Patient's father and brother. Previous colonoscopy in 2018 with 1 tubular adenoma and 2 hyperplastic polyps removed- see HPI for further details regarding. Ordered Colonoscopy. Denies anticoagulation therapy. Ordered: Colonoscopy (Hospital Procedure) E&M of New Patient Low 30-44 Min 67549 2. Family history of colon cancer (Z80.0: Family history of malignant neoplasm of digestive organs) Same as above plan of care. See # 1. Ordered: Colonoscopy (Hospital Procedure) E&M of New Patient Low 30-44 Min 33131 3. Family history of colonic polyps (Z83.71: Family history of colonic polyps) Same as above plan of care. See # 1. Ordered: Colonoscopy (Hospital Procedure) E&M of New Patient Low 30-44 Min 22341 4. BMI 27.0-27.9,adult (Z68.27: Body mass index [BMI] 27.0-27.9, adult) Patient to perform exercise and healthy diet. Ordered: E&M of New Patient Low 30-44 Min 68266 Orders: polyethylene glycol 3350 with electrolytes, See Instructions, 1 EA, Refill(s) 0, PER PHYSICIAN INSTRUCTIONS. PRIOR TO COLONOSCOPY., [id number], 157.5, cm, 12/22/21 8:44:00 EDT, Height/Length Dosing, 67.5, kg, 12/22/21 8:44:00 EDT, Weight Dosing Follow-up With When Contact Information Elizabeth Joel CNP Within 2 to 4 weeks Additional Instructions: Patient Education Colonoscopy, Adult Problem List/Past Medical History Ongoing Family history of colon cancer Family history of colonic polyps History of colon polyps Historical No qualifying data Procedure/Surgical History Colonoscopy, Fissurectomy with sphincterotomy, Hysterectomy. Medications biotin, 1000 mcg, Oral, Daily Calcium 600+D, 1 tab, Oral, Daily chromium picolinate, 200 mcg, Oral, Daily Co Q-10, 150 mg, Oral, Daily Estrace 0.5 mg Tab, 0.5 mg= 1 tab(s), Oral, Daily Fish Oil, 500 mg, Oral, Daily polyethylene glycol 3350 with electrolytes Oral Pwdr for Pao 4000 mL (NuLytely), See Instructions pyridoxine, 250 mg, Oral, Daily selenium, 50 mcg, Oral, Daily spironolactone, 100 mg, Oral, Daily Vitamin B Complex oral capsule, 1 cap(s), Oral, Daily Vitamin C, 100 mg, Oral, Daily Vitamin D3, 400 International_Unit, Oral, Daily Zinc, 140 mg, Oral, Daily Allergies No Known Medication Allergies Social History Alcohol Current, Wine, 1-2 times per year, 12/22/2021 Substance Abuse - Denies Substance Abuse, 12/22/2021 Tobacco Never (less than 100 in lifetime) Tobacco Use:. Never Smokeless Tobacco Use:., 12/22/2021 Family History Primary malignant neoplasm of colon: Father. Primary malignant neoplasm of female breast: Sister. Normal [facility] Comment on above: Result Comment: Elec tronically Signed By: Elizabeth Joel CNP\.br\Date and Time Signed: 12/22/21 08:54 EDT Patient Educationon 12-23-19 Patient Education Radiology Colonoscopy, Adult A colonoscopy is an exam to look at the entire large intestine. During the exam, a lubricated, flexible tube that has a camera on the end of it is inserted into the anus and then passed into the rectum, colon, and other parts of the large intestine. You may have a colonoscopy as a part of normal colorectal screening or if you have certain symptoms, such as: ? Lack of red blood cells (anemia). ? Diarrhea that does not go away. ? Abdominal pain. ? Blood in your stool (feces). A colonoscopy can help screen for and diagnose medical problems, including: ? Tumors. ? Polyps. ? Inflammation. ? Areas of bleeding. Tell a health care provider about: ? Any allergies you have. ? All medicines you are taking, including vitamins, herbs, eye drops, creams, and gsje-vcv-eojedsb medicines. ? Any problems you or family members have had with anesthetic medicines. ? Any blood disorders you have. ? Any surgeries you have had. ? Any medical conditions you have. ? Any problems you have had passing stool. What are the risks? Generally, this is a safe procedure. However, problems may occur, including: ? Bleeding. ? A tear in the intestine. ? A reaction to medicines given during the exam. ? Infection (rare). What happens before the procedure? Eating and drinking restrictions Follow instructions from your health care provider about eating and drinking, which may include: ? A few days before the procedure ? follow a low-fiber diet. Avoid nuts, seeds, dried fruit, raw fruits, and vegetables. ? 1?3 days before the procedure ? follow a clear liquid diet. Drink only clear liquids, such as clear broth or bouillon, black coffee or tea, clear juice, clear soft drinks or sports drinks, gelatin dessert, and popsicles. Avoid any liquids that contain red or purple dye. ? On the day of the procedure ? do not eat or drink anything starting 2 hours before the procedure, or within the time period that your health care provider recommends. Up to 2 hours before the procedure, you may continue to drink clear liquids, such as water or clear fruit juice. Bowel prep If you were prescribed an oral bowel prep to clean out your colon: ? Take it as told by your health care provider. Starting the day before your procedure, you will need to drink a large amount of medicated liquid. The liquid will cause you to have multiple loose stools until your stool is almost clear or light green. ? If your skin or anus gets irritated from diarrhea, you may use these to relieve the irritation: ? Medicated wipes, such as adult wet wipes with aloe and vitamin E. ? A skin-soothing product like petroleum jelly. ? If you vomit while drinking the bowel prep, take a break for up to 60 minutes and then begin the bowel prep again. If vomiting continues and you cannot take the bowel prep without vomiting, call your health care provider. ? To clean out your colon, you may also be given: ? Laxative medicines. ? Instructions about how to use an enema. General instructions ? Ask your health care provider about: ? Changing or stopping your regular medicines or supplements. This is especially important if you are taking iron supplements, diabetes medicines, or blood thinners. ? Taking medicines such as aspirin and ibuprofen. These medicines can thin your blood. Do not take these medicines before the procedure if your health care provider tells you not to. ? Plan to have someone take you home from the hospital or clinic. What happens during the procedure? ? An IV may be inserted into one of your veins. ? You will be given medicine to help you relax (sedative). ? To reduce your risk of infection: ? Your health care team will wash or sanitize their hands. ? Your anal area will be washed with soap. ? You will be asked to lie on your side with your knees bent. ? Your health care provider will lubricate a long, thin, flexible tube. The tube will have a camera and a light on the end. ? The tube will be inserted into your anus. ? The tube will be gently eased through your rectum and colon. ? Air will be delivered into your colon to keep it open. You may feel some pressure or cramping. ? The camera will be used to take images during the procedure. ? A small tissue sample may be removed to be examined under a microscope (biopsy). ? If small polyps are found, your health care provider may remove them and have them checked for cancer cells. ? When the exam is done, the tube will be removed. The procedure may vary among health care providers and hospitals. What happens after the procedure? ? Your blood pressure, heart rate, breathing rate, and blood oxygen level will be monitored until the medicines you were given have worn off. ? Do not drive for 24 hours after the exam. ? You may have a small amount of blood in your stool. ? You may pass gas and have mild abdominal cramping or bloating due to the air t (more content not included)... Normal [facility] RESPIRATORY PANEL PLUSon Adenovirus Not detected Normal NOT DETECTED [facility] Comment on above: Performed By: #### R SPLUS #### [facility] [address] [place] [address] Dr. Brittni Marcum. Parapertusis Not detected Normal NOT DETECTED [facility] Comment on above: Performed By: #### R SPLUS #### [facility] [address] [place] [address] Dr. Brittni Kerr Pertussis Not detected Normal NOT DETECTED [facility] Comment on above: Performed By: #### R SPLUS #### [facility] [address] [place] [address] Dr. Brittni Gordillo Chlamydia Pneumoniae Not detected Normal NOT DETECTED [facility] Comment on above: Performed By: #### R SPLUS #### [facility] [address] [place] [address] Dr. Brittni Gordillo Coronavirus 229E Not detected Normal NOT DETECTED [facility] Comment on above: Performed By: #### R SPLUS #### [facility] [address] [place] [address] Dr. Brittni Gordillo Coronavirus HKU1 Not detected Normal NOT DETECTED [facility] Comment on above: Performed By: #### R SPLUS #### [facility] [address] [place] [address] Dr. Brittni Gordillo Coronavirus NL63 Not detected Normal NOT DETECTED [facility] Comment on above: Performed By: #### R SPLUS #### [facility] [address] [place] [address] Dr. Brittni Gordillo Coronavirus OC43 Not detected Normal NOT DETECTED [facility] Comment on above: Performed By: #### R SPLUS #### [facility] [address] [place] [address] Dr. Brittni Gordillo Influenza A H1 2009 Not detected Normal NOT DETECTED [facility] Comment on above: Performed By: #### R SPLUS #### [facility] [address] [place] [address] Dr. Brittni Gordillo Influenza A H3 Not detected Normal NOT DETECTED The [facility] Comment on above: Performed By: #### R SPLUS #### [facility] [address] [place] [address] Dr. Brittni Gordillo Influenza B Not detected Normal NOT DETECTED The [facility] Comment on above: Performed By: #### R SPLUS #### [facility] [address] [address] [address] Brittni Gordillo Metapneumovirus Not detected Normal NOT DETECTED The [facility] Comment on above: Performed By: #### R SPLUS #### [facility] [address] [place] [address] Dr. Brittni Gordillo Mycoplas. Pneumoniae Not detected Normal NOT DETECTED [facility] Comment on above: Performed By: #### R SPLUS #### [facility] [address] [place] [address] Dr. Brittni Gordillo Parainfluenza 1 Not detected Normal NOT DETECTED The [facility] Comment on above: Performed By: #### R SPLUS #### [facility] [address] [place] [address] Dr. Brittni Gordillo Parainfluenza 2 Not detected Normal NOT DETECTED The [facility] Comment on above: Performed By: #### R SPLUS #### [facility] [address] [place] [address] Dr. Brittni Gordillo Parainfluenza 3 Not detected Normal NOT DETECTED The [facility] Comment on above: Performed By: #### R SPLUS #### [facility] [address] [place] [address] Dr. Brittni Gordillo Parainfluenza 4 Not detected Normal NOT DETECTED The [facility] Comment on above: Performed By: #### R SPLUS #### [facility] [address] [place] [address] Dr. Brittni Gordillo Rhino/Enterovirus Not detected Normal NOT DETECTED [facility] Comment on above: Performed By: #### R SPLUS #### [facility] [address] [place] [address] Dr. Brittni Gordillo RP2 Header 1 RESPIRATORY PANEL: VIRUSES Normal [facility] Comment on above: Performed By: #### R SPLUS #### [facility] [address] [place] [address] Dr. Brittni Gordillo RP2 Header 2 RESPIRATORY PANEL: BACTERIA Normal [facility] Comment on above: Performed By: #### R SPLUS #### [facility] [address] [place] [address] Dr. Birttni Gordillo RSV Not detected Normal NOT DETECTED The [facility] Comment on above: Performed By: #### R SPLUS #### [facility] [address] [address] [address] Brittni Gordillo SARS-CoV-2 (COVID-19) RNA BLADIMIR+probe Ql (Unsp spec) Not detected Normal NOT DETECTED [facility] Comment on above: Performed By: #### R SPLUS #### [facility] [address] [place] [address] Dr. Brittni Gordillo Patient Letter FTon 2020 Patient Letter FT March 19, 2021 DELORES WALDEN [address] [place] [address] DELORES WALDEN 1965 Dear Delores, This is a SECOND ATTEMPT to remind you that you are due for an appointment with Dr. Domingo or Dr. Silva. Please call [facility] at [phone] to schedule an appointment at your earliest convenience. Thank you, [facility] Vital Signs Date Time Vital Sign Value Performing Clinician Facility 07-31-2024 13:32-0400 Body height 157.5 cm Richard Muir MD Work Phone: [facility] 07-31-2024 13:32-0400 Body mass index (BMI) [Ratio] 28.17 kg/m2 Richard Muir MD Work Phone: [facility] 07-31-2024 13:32-0400 Body weight 69.85 kg Richard Muir MD Work Phone: [facility] 07-31-2024 13:32-0400 Diastolic blood pressure 86 mm[Hg] Richard Muir MD Work Phone: [facility] 07-31-2024 13:32-0400 Heart rate 65 /min Richard Muir MD Work Phone: [facility] 07-31-2024 13:32-0400 SaO2% (BldA) [Mass fraction] 98 % Richard Muir MD Work Phone: [facility] 07-31-2024 13:32-0400 Systolic blood pressure 118 mm[Hg] Richard Muir MD Work Phone: [facility] 02-12-2022 15:10-0400 Blood Pressure Location Elizabethjeannie AkersWisam [facility] 02-12-2022 15:10-0400 Body temperature 97.16 [degF] Elizabeth Wisam [facility] 02-12-2022 15:10-0400 Diastolic blood pressure 79 mm[Hg] Elizabeth Wisam [facility] 02-12-2022 15:10-0400 Heart rate 56 /min Elizabeth Wisam [facility] 02-12-2022 15:10-0400 SaO2% (BldA) [Mass fraction] 100 % Elizabeth Wisam [facility] 02-12-2022 15:10-0400 Systolic blood pressure 125 mm[Hg] Elizabeth Wisam [facility] 12-22-2021 08:40-0400 Blood Pressure Location Elizabeth Wisam [facility] 12-22-2021 08:40-0400 Body temperature 98.24 [degF] Elizabeth Wisam [facility] 12-22-2021 08:40-0400 Diastolic blood pressure 78 mm[Hg] Elizabeth Akersmetz [facility] 12-22-2021 08:40-0400 Heart rate 68 /min Elizabeth Akersmetz [facility] 12-22-2021 08:40-0400 Respiratory rate 14 /min Elizabeth Joel [facility] 12-22-2021 08:40-0400 Systolic blood pressure 120 mm[Hg] Elizabeth Joel [facility] Encounters Encounter Date Encounter Type Care Provider Facility Start: 07-31-2024 End: 07-31-2024 Office outpatient visit 25 minutes Richard Muir MD Work Phone: [facility] Comment on above: Visual changes (Prim emigdio Dx); Amaurosis fugax Start: 07-31-2024 End: 07-31-2024 ambulatory RICHARD MUIR Not Available Start: 07-12-2024 End: 07-18-2024 Telephone encounter Richard Muir MD Work Phone: [facility] Start: 03-27-2024 End: 03-27-2024 Patient encounter procedure MD Richard Muir Work Phone: [facility] Work Phone: Start: 03-27-2024 End: 03-27-2024 ambulatory MD Richard Muir Work Phone: [facility] Work Phone: Start: 11-29-2023 End: 11-29-2023 ambulatory KAYLEY GARNETT Not Available Start: 03-26-2023 End: 03-26-2023 ambulatory MD Richard Muir Work Phone: [facility] Work Phone: Start: 03-26-2023 End: 03-26-2023 Patient encounter procedure MD Richard Muir Work Phone: [facility] Work Phone: Start: 02-12-2022 End: 02-12-2022 Patient encounter procedure Elizabeth Joel [facility] Start: 01-27-2022 End: 01-27-2022 Lab Drop off Thomas DOMINGO [facility] Start: 12-22-2021 End: 12-22-2021 Patient encounter procedure Elizabeth Joel [facility] Start: 09-23-2021 End: 09-23-[address] RICHARD MUIR Facility:[facility] Procedures Date Procedure Procedure Detail Performing Clinician Start: 03-27-2024 End: 03-27-2024 Screening mammography of bilateral breasts MD Richard Muir Work Phone: Start: 03-26-2023 Screening mammograph y of bilateral breasts MD Richard Muir Work Phone: Start: 01-27-2022 Colonoscopy Richard Muir MD Work Phone: [facility] Comment on above: 2018 Fissurectomy with sphincterotomy Elizabeth Joel Hysterectomy Elizabeth Joel Plan of Treatment Date Care Activity Detail Author Start: 01-28-2032 Screening for malign ant neoplasm of colon [facility] Start: 03-27-2025 Screening for malign ant neoplasm of breast [facility] Start: 12-01-2024 End: 12-01-2024 Patient encounter procedure 12/01/2024 8:30 AM EST Office Visit [facility] [address] [place] [id number] Kayley Garnett, DO [address] [place] [address] [facility] Start: 07-31-2024 End: 07-31-2025 US.doppler Carotid arteries - bilateral Vascular US carotid artery duplex bilateral Imaging Routine Visual changes Amaurosis fugax Expected: 07/31/2024, Expires: 07/31/2025 [facility] Work Phone: Comment on above: Expected: 07/31/2024 , Expires: 07/31/2025 Start: 07-31-2024 End: 07-31-2024 Patient encounter procedure 07/31/2024 1:30 PM EDT Office [facility] [address] [facility] [address] [place] [id number] Richard Muir MD [address] [facility] [address] [place] [address] [facility] Start: 06-04-2024 Influenza vaccination Influenza Vacc ine (#1) [facility] Start: 1965 Screening for malign ant neoplasm of colon [facility] Immunizations Immunization Date Immunization Notes Care Provider Fa cili 01-07-2023 zoster vaccine recombinant R chinyere Muir MD Work Phone: [facility] 10-02-2022 zoster vaccine recombinant R chinyere Muir MD Work Phone: [facility] 08-10-2022 influenza, injectabl e, quadrivalent, preservative free Richard Muir MD Work Phone: [facility] 08-10-2022 influenza virus vacc ine, unspecified formulation Richard Muir MD Work Phone: [facility] 06-28-2022 Moderna Bivalent Leslie ster Vaccination Richard Muir MD Work Phone: [facility] 07-04-2021 influenza, injectabl e, quadrivalent, preservative free Richard Muir MD Work Phone: [facility] 03-27-2021 tetanus toxoid, redu juan diego diphtheria toxoid, and acellular pertussis vaccine, adsorbed Richard Muir MD Work Phone: [facility] 06-04-2020 influenza, injectabl e, quadrivalent, preservative free Richard Muir MD Work Phone: [facility] 07-03-2019 influenza, seasonal, injectable, preservative free Richard Muir MD Work Phone: [facility] 02-28-2019 hepatitis A vaccine, adult dosage Richard Muir MD Work Phone: [facility] 08-23-2018 hepatitis A vaccine, adult dosage Richard Muir MD Work Phone: [facility] 08-23-2018 typhoid capsular polysaccharide vaccine Richard Muir MD Work Phone: [facility] 06-20-2018 influenza, seasonal, injectable, preservative free Richard Muir MD Work Phone: [facility] 07-06-2017 influenza, injectabl e, quadrivalent, preservative free Richard Muir MD Work Phone: [facility] 09-08-2016 seasonal influenza, intradermal, preservative free Richard Muir MD Work Phone: [facility] 09-20-2009 novel influenza-H1N1 -09, preservative-free, injectable Richard Muir MD Work Phone: [facility] Payers Date Payer Category Payer Self-pay [id number] 2023 Private Health Insurance [employer] [id number] 1965 Unknown [id number] 1965 Unknown [id number] 1965 Unknown [id number] 1961 Unknown [id number] Unknown [id number] Social History Date Type Detail Facility Start: 12-22-2021 End: 04-27-2023 Tobacco smoking status Never smoked tobacco (finding) [facility] Tobacco smoking status Never [facility] Start: 05-03-2023 End: 07-27-2024 Sex Assigned At Female [facility] Start: 1965 Sex Assigned At Female [facility] Start: 04-27-2023 Tobacco use and exposure Smoke less tobacco non-user [facility] Start: 11-29-2023 End: 07-31-2024 Alcoholic beverage intake Current drinker of alcohol (finding) [facility] Start: 11-29-2023 End: 07-27-2024 Alcoholic beverage intake [facility] Within the last year , have you been afraid of your partner or ex-partner? No [facility] Are you now , , , , never or living with a partner? [facility] How often to you hav e a drink containing alcohol? Never [facility] Do you feel stress - tense, restless, nervous, or anxious, or unable to sleep at night because your mind is troubled all the time - these days [OSQ] Only a little [facility] (I/We) worried david er (my/our) food would run out before (I/we) got money to buy more. Never true [facility] Start: 02-18-2023 Alcohol Comment caffeine intak e type: chocolate [facility] Start: 1965 Sex assigned at Not on file [facility] Do you belong to any clubs or organizations such as islam groups, unions, fraternal or athletic groups, or school groups? Yes [facility] How often to you hav e a drink containing alcohol? Monthly or less [facility] How many standard dr inks containing alcohol do you have on a typical day? 1 or 2 [facility] History of Present illness Narrative 07-31-2024 Richard Muir MD - 07/31/2024 1:41 PM EDTRchinyere Muir MD - 07/31/2024 1:30 PM EDT Note Date & Type Note Facility 07-31-2024 History of Presen t illness Narrative Associated Problem(s): Visual changes Consider CT scan of the brain Images from the original note were not included. HPI trouble with eyes Additional comments: Poss needing a carotid ultrasound Last edited by Concetta Hightower MA on 07/31/2024 7:52 AM. Subjective Patient ID: Delores Walden is a 59 y.o. female who presents for trouble with eyes (Poss needing a carotid ultrasound). Pt has been seeing rainbows in her eyes this has happened last April and then again in June , her eye dr recommend an ultrasound No other symptoms 2 episodes 1 last year Most recent episode in June with rainbow vision NO one sided weakness or Headache. No other associated symptoms Current Outpatient Medications on File Prior to Visit Medication Sig Dispense Refill magnesium 200 MG tablet B Complex Vitamins (vitamin B complex) tablet Orally Bioflavonoid Products (Vitamin C) chewable tablet 1 (one) time each day at the same time biotin 300 MCG tablet 1 (one) time each day at the same time. Calcium Citrate-Vitamin D 1000-0.01 MG/30ML liquid Take by mouth cholecalciferol 50 MCG (2000 UT) tablet 1 (one) time each day at the same time chromium picolinate 200 mcg tablet tablet estradiol (Estrace) 0.5 MG tablet TAKE 1 TABLET DAILY 90 tablet 3 hydrocortisone 2.5 % ointment if needed selenium 100 MCG tablet Soolantra 1 % cream tretinoin (Retin-A) 0.025 % cream zinc gluconate 50 MG tablet 1 (one) time each day at the same time. [DISCONTINUED] co-enzyme Q-10 30 MG capsule 1 (one) time each day at the same time. No current facility-administered medications on file prior to visit. I have reviewed and reconciled the history and medication list with the patient today. No Known Allergies Social History Tobacco Use Smoking status: Never Smokeless tobacco: Never Substance Use Topics Alcohol use: Yes Alcohol/week: 2.0 standard drinks of alcohol Types: 2 Standard drinks or equivalent per week Comment: caffeine intake type: chocolate Drug use: Never Family History Problem Relation Name Age of Onset Stroke Mother Makenna Acute myelogenous leukemia Father Breast cancer Sister Allegra Beasley No Known Problems Brother 2 brothers Diabetes Maternal Grandmother Samantha Marty Diabetes Paternal Grandfather Sharad Rosales No Known Problems Son 1 son No Known Problems Son 1 adopted son Past Medical History: Diagnosis Date Adenomatous polyp Allergies Anal fissure Ankle sprain Asthma (CMS/HCC) Endometriosis 1998 Fibroids adenomyosis/endometriosis Right foot pain Past Surgical History: Procedure Laterality Date SECTION, CLASSIC 1990 SECTION, LOW TRANSVERSE COLONOSCOPY 2012 COLONOSCOPY 2017 [place] COLONOSCOPY 01/27/2022 Tubulovillous Adenoma OTHER SURGICAL HISTORY 08/2019 Peroneal tendonitis and Split peroneal tendon tear Left.Tenexmicro debridement of the left peroneal tendons Dr. Sapna EUBANKS REMOVAL OF ANAL FISSURE TOTAL ABDOMINAL HYSTERECTOMY 2000 [facility] Status Hysterectomy Smoking Status Never Review of Systems HENT: Negative for sinus pain. Eyes: Positive for visual disturbance. Negative for photophobia, pain, discharge and itching. Neurological: Negative for dizziness, facial asymmetry, light-headedness and headaches. Objective Physical Exam Constitutional: General: She is not in acute distress. Appearance: Normal appearance. HENT: Head: Normocephalic. Neck: Vascular: No carotid bruit. Cardiovascular: Rate and Rhythm: Normal rate and regular rhythm. Pulmonary: Effort: Pulmonary effort is normal. No respiratory distress. Breath sounds: Normal breath sounds. Neurological: General: No focal deficit present. Mental Status: She is alert and oriented to person, place, and time. Psychiatric: Mood and Affect: Mood normal. Assessment/Plan Problem List Items Addressed This Visit Visual changes - Primary Consider CT scan of the brain Relevant Orders Vascular US carotid artery duplex bilateral Amaurosis fugax Relevant Orders Vascular US carotid artery duplex bilateral No follow-ups on file. documented in this encounter [facility] Telephone encounter Note 07-13-2024 Telephone Encounter - Concetta Hightower MA - 07/13/2024 7:30 AM EDT Note Date & Type Note Facility 07-13-2024 Telephone encount er Note Please schedule pt for an appt has she has not been seen since 05/03/2023. Thank you [facility] Note 07-13-2024 Telephone Encounter - Concetta Hightower MA - 07/13/2024 7:30 AM EDTTelephone Encounter - Sarah Dorantes - 07/12/2024 2:21 PM EDT Note Date & Type Note Facility 07-13-2024 Miscellaneous Notes Formattin g of this note might be different from the original. Please schedule pt for an appt has she has not been seen since 05/03/2023. Thank you Patient called stating that she is starting to have some troubles with her eye again - she said this happened before where she see rainbows this happened before and she seen her eye doctor and nothing was wrong at the time but the eye doctor that she went to suggested to check her carotid artery. She said eventually it started to go away but just recently it started back up again - she just went to the eye doctor and again there were no issues with her eyes but the eye doctor again asked to see if her pcp would order a carotid us she thinks this may have something to do with this. documented in this encounter [facility] Telephone encounter Note 07-12-2024 Telephone Encounter - Sarah Dorantes - 07/12/2024 2:21 PM EDT Note Date & Type Note Facility 07-12-2024 Telephone encount er Note Patient called stating that she is starting to have some troubles with her eye again - she said this happened before where she see rainbows this happened before and she seen her eye doctor and nothing was wrong at the time but the eye doctor that she went to suggested to check her carotid artery. She said eventually it started to go away but just recently it started back up again - she just went to the eye doctor and again there were no issues with her eyes but the eye doctor again asked to see if her pcp would order a carotid us she thinks this may have something to do with this. [facility] Hospital Discharge instructions 02-12-2022 Note Date & Type Note Facility 02-12-2022 Hospital Discharg e instructions Patient Education 02/12/2022 14:57:41 Colon Polyps Colon Polyps Polyps are tissue growths inside the body. Polyps can grow in many places, including the large intestine (colon). A polyp may be a round bump or a mushroom-shaped growth. You could have one polyp or several. Most colon polyps are noncancerous (benign). However, some colon polyps can become cancerous over time. Finding and removing the polyps early can help prevent this. What are the causes? The exact cause of colon polyps is not known. What increases the risk? You are more likely to develop this condition if you: Have a family history of colon cancer or colon polyps. Are older than 50 or older than 45 if you are . Have inflammatory bowel disease, such as ulcerative colitis or Crohn's disease. Have certain hereditary conditions, such as: ?Familial adenomatous polyposis. ?Neff syndrome. ?Turcot syndrome. ?Peutz Jeghers syndrome. Are overweight. Smoke cigarettes. Do not get enough exercise. Drink too much alcohol. Eat a diet that is high in fat and red meat and low in fiber. Had childhood cancer that was treated with abdominal radiation. What are the signs or symptoms? Most polyps do not cause symptoms. If you have symptoms, they may include: Blood coming from your rectum when having a bowel movement. Blood in your stool. The stool may look dark red or black. Abdominal pain. A change in bowel habits, such as constipation or diarrhea. How is this diagnosed? This condition is diagnosed with a colonoscopy. This is a procedure in which a lighted, flexible scope is inserted into the anus and then passed into the colon to examine the area. Polyps are sometimes found when a colonoscopy is done as part of routine cancer screening tests. How is this treated? Treatment for this condition involves removing any polyps that are found. Most polyps can be removed during a colonoscopy. Those polyps will then be tested for cancer. Additional treatment may be needed depending on the results of testing. Follow these instructions at home: Lifestyle Maintain a healthy weight, or lose weight if recommended by your health care provider. Exercise every day or as told by your health care provider. Do not use any products that contain nicotine or tobacco, such as cigarettes and e-cigarettes. If you need help quitting, ask your health care provider. If you drink alcohol, limit how much you have: ?0 1 drink a day for women. ? 0 2 drinks a day for men. Be aware of how much alcohol is in your drink. In the [place] one drink equals one 12 oz bottle of beer (355 mL), one 5 oz glass of wine (148 mL), or one 1 oz shot of hard liquor (44 mL). Eating and drinking Eat foods that are high in fiber, such as fruits, vegetables, and whole grains. Eat foods that are high in calcium and vitamin D, such as milk, cheese, yogurt, eggs, liver, fish, and broccoli. Limit foods that are high in fat, such as fried foods and desserts. Limit the amount of red meat and processed meat you eat, such as hot dogs, sausage, lui, and lunch meats. General instructions Keep all follow-up visits as told by your health care provider. This is important. ?This includes having regularly scheduled colonoscopies. ?Talk to your health care provider about when you need a colonoscopy. Contact a health care provider if: You have new or worsening bleeding during a bowel movement. You have new or increased blood in your stool. You have a change in bowel habits. You lose weight for no known reason. Summary Polyps are tissue growths inside the body. Polyps can grow in many places, including the colon. Most colon polyps are noncancerous (benign), but some can become cancerous over time. This condition is diagnosed with a colonoscopy. Treatment for this condition involves removing any polyps that are found. Most polyps can be removed during a colonoscopy. This information is not intended to replace advice given to you by your health care provider. Make sure you discuss any questions you have with your health care provider. Document Released: 06/16/2005 Document Revised: 01/05/2019 Document Reviewed: 01/05/2019 [employer] Patient Education 2020 [employer]. Follow Up Care 01/28/2022 15:11:59 With:Elizabeth Joel CNP Address: When:1 year only if needed [facility] Hospital Discharge instructions 12-22-2021 Note Date & Type Note Facility 12-22-2021 Hospital Discharg e instructions Patient Education 12/22/2021 08:32:33 Colonoscopy, Adult Colonoscopy, Adult A colonoscopy is an exam to look at the entire large intestine. During the exam, a lubricated, flexible tube that has a camera on the end of it is inserted into the anus and then passed into the rectum, colon, and other parts of the large intestine. You may have a colonoscopy as a part of normal colorectal screening or if you have certain symptoms, such as: Lack of red blood cells (anemia). Diarrhea that does not go away. Abdominal pain. Blood in your stool (feces). A colonoscopy can help screen for and diagnose medical problems, including: Tumors. Polyps. Inflammation. Areas of bleeding. Tell a health care provider about: Any allergies you have. All medicines you are taking, including vitamins, herbs, eye drops, creams, and [id number] medicines. Any problems you or family members have had with anesthetic medicines. Any blood disorders you have. Any surgeries you have had. Any medical conditions you have. Any problems you have had passing stool. What are the risks? Generally, this is a safe procedure. However, problems may occur, including: Bleeding. A tear in the intestine. A reaction to medicines given during the exam. Infection (rare). What happens before the procedure? Eating and drinking restrictions Follow instructions from your health care provider about eating and drinking, which may include: A few days before the procedure follow a low-fiber diet. Avoid nuts, seeds, dried fruit, raw fruits, and vegetables. 1 3 days before the procedure follow a clear liquid diet. Drink only clear liquids, such as clear broth or bouillon, black coffee or tea, clear juice, clear soft drinks or sports drinks, gelatin dessert, and popsicles. Avoid any liquids that contain red or purple dye. On the day of the procedure do not eat or drink anything starting 2 hours before the procedure, or within the time period that your health care provider recommends. Up to 2 hours before the procedure, you may continue to drink clear liquids, such as water or clear fruit juice. Bowel prep If you were prescribed an oral bowel prep to clean out your colon: Take it as told by your health care provider. Starting the day before your procedure, you will need to drink a large amount of medicated liquid. The liquid will cause you to have multiple loose stools until your stool is almost clear or light green. If your skin or anus gets irritated from diarrhea, you may use these to relieve the irritation: ?Medicated wipes, such as adult wet wipes with aloe and vitamin E. ?A skin-soothing product like petroleum jelly. If you vomit while drinking the bowel prep, take a break for up to 60 minutes and then begin the bowel prep again. If vomiting continues and you cannot take the bowel prep without vomiting, call your health care provider. To clean out your colon, you may also be given: ?Laxative medicines. ?Instructions about how to use an enema. General instructions Ask your health care provider about: ?Changing or stopping your regular medicines or supplements. This is especially important if you are taking iron supplements, diabetes medicines, or blood thinners. ?Taking medicines such as aspirin and ibuprofen. These medicines can thin your blood. Do not take these medicines before the procedure if your health care provider tells you not to. Plan to have someone take you home from the hospital or clinic. What happens during the procedure? An IV may be inserted into one of your veins. You will be given medicine to help you relax (sedative). To reduce your risk of infection: ?Your health care team will wash or sanitize their hands. ?Your anal area will be washed with soap. You will be asked to lie on your side with your knees bent. Your health care provider will lubricate a long, thin, flexible tube. The tube will have a camera and a light on the end. The tube will be inserted into your anus. The tube will be gently eased through your rectum and colon. Air will be delivered into your colon to keep it open. You may feel some pressure or cramping. The camera will be used to take images during the procedure. A small tissue sample may be removed to be examined under a microscope (biopsy). If small polyps are found, your health care provider may remove them and have them checked for cancer cells. When the exam is done, the tube will be removed. The procedure may vary among health care providers and hospitals. What happens after the procedure? Your blood pressure, heart rate, breathing rate, and blood oxygen level will be monitored until the medicines you were given have worn off. Do not drive for 24 hours after the exam. You may have a small amount of blood in your stool. You may pass gas and have mild abdominal cramping or bloating due to the air that was used to inflate your colon during the exam. It is up to you to get the results of your procedure. Ask your health care provider, or the department performing the procedure, when your results will be ready. Summary A colonoscopy is an exam to look at the entire large intestine. During a colonoscopy, a lubricated, flexible tube with a camera on the end of it is inserted into the anus and then passed into the colon and other parts of the large intestine. Follow instructions from your health care provider about eating and drinking before the procedure. If you were prescribed an oral bowel prep to clean out your colon, take it as told by your health care provider. After your procedure, your blood pressure, heart rate, breathing rate, and blood oxygen level will be monitored until the medicines you were given have worn off. This information is not intended to replace advice given to you by your health care provider. Make sure you discuss any questions you have with your health care provider. Document Released: 09/17/2001 Document Revised: 07/13/2018 Document Reviewed: 12/01/2016 [employer] Patient Education 2020 [employer] 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 documented in this encounter [facility] Hospital Discharge instructions Note Date & Type Note Facility Hospital Discharge instructions No data available for this section [facility] Summary Purpose Family History No Family History Records Found Relationship Condition Age at Onset Recorded Date/T kacy father Leukemia Unknown Not Specified Cerebrovascular accident (CVA) Unknown grandparent Diabetes mellitus Unknown Advance Directives No Advanced Directives Records Found Advance Directive Response Recorded Date/ Time Advance Directives No February 01, 2019 11:43am Chief Complaint and Reason for Visit Chief Complaint Z12.31 Chief Complaint z12.31 Additional Source Comments INFORMATION SOURCE (unrecogn ized section and content) DATE CREATED AUTHOR 10/01/2021 [facility] DATE CREATED AUTHOR AUTHOR'S ORGANIZ ATION 02/13/2022 [facility] DATE CREATED AUTHOR AUTHOR'S ORGANIZ ATION 04/02/[address] [facility] DATE CREATED AUTHOR AUTHOR'S ORGANIZ ATION 08/01/2024 [facility] [employer] Care Teams (unrecognized sec tion and content) Team Status: Active Member Role Status Dates Richard Muir MD Primary Care Provider Active Team Status: Inactive Member Role Status Dates Richard Muir MD Primary Care Provider Active Kayley Garnett DO Attending Provider Active Team Status: Inactive Member Role Status Dates Richard Muir MD Primary Care Provider Active S tart: March 27, 2024 End: March 27, 2024 Kayley Garnett DO Attending Provider Active Start: March 27, 2024 End: March 27, 2024 Craft Worker Relationship Specialty Start Date End Date Richard Muir MD [address] [place] [address] PCP - General Family Medicine 02/09/23 Richard Muir MD [address] [facility] [address] [place] [address] PCP - [employer] 10/04/13 10/03/99 Craft Worker Relationship Specialty Start Date End Date Richard Muir MD [address] [facility] [address] [place] [address] PCP - General Family Medicine 02/09/23 Richard Muir MD [address] [facility] [address] [place] [address] PCP - [facility] 10/04/13 10/03/99 Goals (unrecognized section and content) Goals may be documented in a n alternate section Reason for Visit (unrecogniz ed section and content) Reason Comments trouble with eyes Poss needing a carot id ultrasound FOR RECORDS PERTAINING TO PATIENTS WHO ARE OR HAVE BEEN ENROLLED IN A CHEMICAL DEPENDENCY/SUBSTANCEABUSE PROGRAM, SOME INFORMATION MAY BE OMITTED. This clinical summary was aggregated from multiple sources. Caution should be exercised in using it in the provision of clinical care. This summary normalizes information from multiple sources, and as a consequence, information in this document may materially change the coding, format and clinical context of patient data. In addition, data may be omitted in some cases. CLINICAL DECISIONS SHOULD BE BASED ON THE PRIMARY CLINICAL RECORDS. [email or web address] [email or web address]. provides no warranty or guarantee of the accuracy or completeness of information in this document.
== END 2024-08-23 15:02 | disposition home or self-care (01) ==
LOC: CT 15:02
PROVIDERS: PCP Family Medicine; Visit Provider Family Medicine
DX: H53.9 Unspecified visual disturbance (principal); G45.3 Amaurosis fugax
CPT/HCPCS: 70450